=== PATIENT | male | born 1950 | race Hispanic/Latino ===

== ENCOUNTER 2019-05-09 10:15 | Emergency (ER) | payer OTHER ==
[2019-05-09] MEDS ORDERED: NA CHLORIDE 0.9% 1,000 ML ONE (10:26)
[2019-05-09 10:36] LABS: Absolute Lymphocytes (CBC) 1.7 K/uL (0.7-4.9); Basophils % 0.5 % (0-1.3); Hematocrit 36.6 % (39.6-49.0); Lymphocytes % 17.6 % (15.3-44.8); MPV 9.9 fL (7.6-11.3); RBC Red Blood Cell Count 3.74 M/uL (4.33-5.43)
--- NOTE | 2019-05-09 10:43 | RAD REPORT ---
EXAM DESCRIPTION: RAD - Chest Single View - 05/09/2019 10:33 am CLINICAL HISTORY: CHEST PAIN Chest pain. COMPARISON: CHEST PA AND LAT 2 VIEW dated 12/20/2007 FINDINGS: Portable technique limits examination quality. The lungs are grossly clear. The heart is normal in size. No displaced fractures. IMPRESSION: No acute intrathoracic process suspected.
--- NOTE | 2019-05-09 10:43 | EKG ---
Test Date: 2019-05-09 Test Time: 10:29:04 Gaming Cashier: JOHANA MEASUREMENT RESULTS: Intervals: Rate: 68 KS: 154 QRSD: 86 QT: 416 QTc: 442 [place]: P: 38 KS: 154 QRS: -23 T: 53 INTERPRETIVE STATEMENTS: Sinus rhythm with premature atrial complexes Nonspecific ST abnormality Abnormal ECG Compared to ECG 12/20/2007 08:34:07 Atrial premature complex(es) now present ST (T wave) deviation now present Sinus bradycardia no longer present Left anterior fascicular block no longer present Myocardial infarct finding no longer present Electronically Signed On 05-09-19 10:42:38 CDT by Jameson Cross
--- NOTE | 2019-05-09 10:43 | EKG ---
Test Date: 2019-05-09 Test Time: 10:29:47 Ornamental Plaster Sticker: JOHANA MEASUREMENT RESULTS: Intervals: Rate: 74 IN: 154 QRSD: 84 QT: 434 QTc: 481 [place]: P: 91 IN: 154 QRS: -22 T: 37 INTERPRETIVE STATEMENTS: Sinus rhythm and premature ventricular complexes or fusion complexes Nonspecific ST abnormality Prolonged QT Abnormal ECG Compared to ECG 05/09/2019 10:29:04 Fusion complex(es) now present Ventricular premature complex(es) now present Prolonged QT interval now present Atrial premature complex(es) no longer present ST (T wave) deviation still present Electronically Signed On 05-09-19 10:42:33 CDT by Jameson Cross
[2019-05-09 10:55] LABS: ALT/SGPT 112 U/L (12-78); AST/SGOT 184 U/L (15-37); Albumin 2.7 g/dL (3.4-5.0); Alkaline Phosphatase 268 U/L (45-117); BUN Blood Urea Nitrogen 16 mg/dL (7-18); Bicarbonate 24 mmol/L (21-32); Bilirubin Direct 1.3 mg/dL (0-0.2); Bilirubin Total 1.7 mg/dL (0.2-1.0); Glucose Level 147 mg/dL (74-106); Magnesium 1.8 mg/dL (1.8-2.4); NT PRO-BNP 210 pg/mL (<125); Potassium 3.7 mmol/L (3.5-5.1); Protein, Total 6.5 g/dL (6.4-8.2); Sodium Level 140 mmol/L (136-145); Troponin (Emerg Dept Use Only) < 0.02 ng/mL (0.0-0.045)
--- NOTE | 2019-05-09 11:36 | RAD REPORT ---
EXAM DESCRIPTION: CT - Angio Aorta For Dissection - 05/09/2019 11:17 am CLINICAL HISTORY: Chest pain radiating to the back. left sided chest pain, abdominal pain COMPARISON: No comparisons TECHNIQUE: CT angiography of the aorta was performed with MIPs. All CT scans are performed using dose optimization technique as appropriate and may include automated exposure control or mA/KV adjustment according to patient size. FINDINGS: A left aortic arch is present with normal branching pattern of the great vessels.No acute aortic finding is seen such as aneurysm, penetrating ulcer or dissection. The celiac axis, SMA, ALISHA and renal arteries are patent. The pulmonary arterial tree is suboptimally visualized phase contrast. The lungs are mildly emphysematous clear. Significant cirrhosis pattern is present throughout the liver parenchyma. Several small enhancing les ions are present in the right lobe liver. A large enhancing mass is present in the left lobe measurin g 5.6 x 4.2 cm. The gallbladder is surgically absent.Portal venous hypertension suspected.The spleen, pancreas, adrenal glands and kidneys are within normal limits for arterial phase imaging.Small benig n 15 mm left renal cyst. Mild ascites.No bowel obstruction or free air.No pathologic enlarged lymphadenopathy identified. No fracture or worrisome bone lesion seen. IMPRESSION: No acute aortic finding is demonstrated. Advanced liver cirrhosis with solid enhancing 5.6 x 4.2 cm mass in the left lobe liver, likely repres enting hepatocellular carcinoma. Correlation with alpha fetoprotein level would be suggested. Mild ascites.
[2019-05-09] MEDS ORDERED: MORPHINE 2 MG/ML SYR ONE (12:04)
--- NOTE | 2019-05-09 12:35 | ER ---
Nurse's Notes [facility] Name: Tapan Camacho Jr Age: 69 yrs Sex: Male : 1950 Arrival Date: 05/09/2019 Time: 10:16 Bed 3 Private MD: Diagnosis: Chest pain, unspecified;Unspecified cirrhosis of liver;Unspecified abdominal pain Presentation: 05/09 10:08 Presenting complaint: EMS states: pt was at physical therapy for his back and started sv c/o chest pain that started on the left neck and radiated down the midsternum and across the diaphragm area, described as a pulling sensation. Nitro x1 SL given and last BP is 80/54. EKG-PACs. Transition of care: patient was not received from another setting of care. Onset of symptoms was May 09, 2019. Risk Assessment: Do you want to hurt yourself or someone else? Patient reports no desire to harm self or others. Initial Sepsis Screen: Does the patient meet any 2 criteria? No. Patient's initial sepsis screen is negative. Does the patient have a suspected source of infection? No. Patient's initial sepsis screen is negative. Care prior to arrival: Medication(s) given: Nitroglycerin, 0.4 mg SL x 1, IV initiated. 20 GA, in the right antecubital area. 10:08 Method Of Arrival: EMS: [facility] sv 10:08 Acuity: EMILY 2 sv Triage Assessment: 10:08 General: Appears in no apparent distress. uncomfortable, unkempt, Behavior is sv cooperative, anxious. Pain: Complains of pain in left lateral aspect of neck and left anterior aspect of neck Pain radiates to diaphragm, xyphoid area and mid-sternal area Pain currently is 4 out of 10 on a pain scale. Quality of pain is described as pulling Pain began gradually, Is intermittent, Noted to be grimacing. Neuro: Level of Consciousness is awake, alert, obeys commands, Oriented to person, place, time, situation, Moves all extremities. Cardiovascular: Patient's skin is warm and dry. Rhythm is sinus tachycardia. Respiratory: Airway is patent Respiratory effort is even, unlabored, Respiratory pattern is symmetrical, tachypnea. GI: Abdomen is round. Derm: Skin is icteric, jaundiced. Historical: - Allergies: 10:20 No Known Allergies; sv - Home Meds: 10:20 Lisinopril Oral [Active]; sv - PMHx: 10:20 Hypertension; Kidney stones; sv - PSHx: 10:20 Appendectomy; sv - Immunization history:: Adult Immunizations up to date. - Social history:: Smoking status: Patient uses tobacco products, smokes one-half pack cigarettes per day, Patient uses alcohol, occasionally. - Ebola Screening: : No symptoms or risks identified at this time. Screenin:00 Abuse screen: Denies threats or abuse. Denies injuries from another. Nutritional sv screening: No deficits noted. Tuberculosis screening: No symptoms or risk factors identified. Fall Risk None identified. Assessment: 10:33 Reassessment: Patient appears in no apparent distress at this time. No changes from sv previously documented assessment. Patient and/or family updated on plan of care and expected duration. Pain level reassessed. Patient is alert, oriented x 3, equal unlabored respirations, skin warm/dry/pink. 12:15 Reassessment: Patient and/or family updated on plan of care and expected duration. Pain sv level reassessed. Patient is alert, oriented x 3, equal unlabored respirations, skin warm/dry/pink. Pain: Complains of pain in chest Pain currently is 8 out of 10 on a pain scale. Is continuous, Noted to be crying, grimacing. Neuro: Level of Consciousness is awake, alert, obeys commands, Oriented to person, place, time, situation. Respiratory: Respiratory effort is even, unlabored, Respiratory pattern is regular, symmetrical. 14:51 Reassessment: Patient appears in no apparent distress at this time. sg 15:50 Reassessment: Patient appears in no apparent distress at this time. Patient and/or sv family updated on plan of care and expected duration. Pain level reassessed. Patient is alert, oriented x 3, equal unlabored respirations, skin warm/dry/pink. Patient states feeling better. Patient states symptoms have improved. 16:37 Reassessment: Patient appears in no apparent distress at this time. Patient and/or sv family updated on plan of care and expected duration. Pain level reassessed. Patient is alert, oriented x 3, equal unlabored respirations, skin warm/dry/pink. Pt given lemon glycerine swabs Patient states feeling better. Patient states symptoms have improved. Vital Signs: 10:15 BP 93 / 71; Pulse 128; Resp 22; Temp 97.1; Pulse Ox 100% ; Weight 83.01 kg; Height 5 sv ft. 9 in. (175.26 cm); Pain 4/10; 10:22 Pulse 60 MON; sv 11:27 BP 122 / 71; Pulse 71; Resp 21; Pulse Ox 100% ; sv 12:30 BP 124 / 91; Pulse 60; Resp 17; Pulse Ox 100% on R/A; sg 13:30 BP 124 / 73; Pulse 52; Resp 17; Pulse Ox 100% on R/A; sg 14:30 BP 114 / 79; Pulse 55; Resp 17 S; Pulse Ox 100% on R/A; Pain 2/10; sg 10:15 Body Mass Index 27.02 (83.01 kg, 175.26 cm) sv 10:22 Sinus Rhythm sv 10:22 Pt's HR drops from the 60s and will go back up to the 130-140s. Informed Hal SCHROEDER ED Course: 10:08 Patient has correct armband on for positive identification. Placed in gown. Bed in low sv position. Call light in reach. Side rails up X2. campus monitor on. Pulse ox on. NIBP on. 10:08 Initial lab(s) drawn, by ED staff, sent to lab. Maintain EMS IV. Dressing intact. Good sv blood return noted. Site clean \T\ dry. Gauge \T\ site: 20G R AC. 10:13 EKG done, by arcade technician. reviewed by Bello Kilgore MD. at1 10:16 Patient arrived in ED. sv 10:16 Meagan Sexton, CHACORTA is Primary Nurse. sv 10:18 Hal Ortega PA is PHCP. jmm 10:18 Bello Kilgore MD is Attending Physician. jmm 10:19 Triage completed. sv 10:22 Arm band placed on. sv 10:29 EKG done, by arcade technician. reviewed by Bello Kilgore MD times two. at1 10:30 X-ray completed. Portable x-ray completed in exam room. Patient tolerated procedure jb2 well. 10:32 XRAY Chest (1 view) In Process Unspecified. EDMS 11:00 Patient maintains SpO2 saturation greater than 95% on room air. sv 11:18 CT Aorta for Dissection In Process Unspecified. EDMS 12:10 IV discontinued, intact, bleeding controlled, Pressure dressing applied, IV sv discontinued to R AC d/t infiltration. 12:13 Inserted saline lock: 20 gauge in left antecubital area, using aseptic technique. Blood sv collected. Flushed left antecubital with 5 ml normal saline. 12:24 attempted transfer to [facility] in [place]. bd Administered Medications: 10:33 Drug: NS 0.9% 1000 ml Route: IV; Rate: 1 bolus; Site: right antecubital; sv 11:30 Follow up: Response: No adverse reaction; IV Status: Completed infusion; IV Intake: sv 1000ml 12:15 Drug: morphine 4 mg {Note: RASS3.} Route: IVP; Site: left antecubital; sv 13:00 Follow up: Response: No adverse reaction; Marked relief of symptoms; Pain is decreased; sv RASS: Moderate sedation (-3) Intake: 11:30 IV: 1000ml; Total: 1000ml. sv Outcome: 12:35 ER care complete, transfer ordered by . shana 15:51 Transferred by ground EMS to [facility] Transfer form completed. sv X-rays sent w/ patient. Note: Report given to Rita WHATLEY 15:51 Condition: stable 15:51 Instructed on the need for transfer. 17:36 Patient left the ED. sv Signatures: Dispatcher [employer] EDMS Oliva Cota Stephanie, RN RN sv Gay, Steven, RN RN sg Mickail, Joel, PA PA jmm Buechter, Jesse jb2 Gonzales, Amanda, offset platemaker EKG Tat1
--- NOTE | 2019-05-09 12:36 | EDPHYS ---
Physician Documentation [facility] Name: Tapan Camacho Jr Age: 69 yrs Sex: Male : 1950 Arrival Date: 05/09/2019 Time: 10:16 Bed 3 Private MD: ED Physician Bello Kilgore HPI: 05/09 10:31 This 69 yrs old Male presents to ER via EMS with complaints of Chest Pain. [facility] 10:31 The patient or guardian reports chest pain that is located primarily in the substernal [facility] area. Onset: gradually, last night. The pain radiates to left neck. Associated signs and symptoms: Pertinent positives: abdominal pain. The chest pain is described as aching, pulling. This is a 69 year old male with a history of htn, kidney stones that presents to the ED with complaints of left sided chest pain radiating into the left side of his neck and abdomen diffusely. Denies vomiting.. Historical: - Allergies: 10:20 No Known Allergies; sv - Home Meds: 10:20 Lisinopril Oral [Active]; sv - PMHx: 10:20 Hypertension; Kidney stones; sv - PSHx: 10:20 Appendectomy; sv - Immunization history:: Adult Immunizations up to date. - Social history:: Smoking status: Patient uses tobacco products, smokes one-half pack cigarettes per day, Patient uses alcohol, occasionally. - Ebola Screening: : No symptoms or risks identified at this time. ROS: 10:31 Constitutional: Negative for fever, chills, and weight loss. jmm 10:31 Cardiovascular: Positive for chest pain. 10:31 Abdomen/GI: Positive for abdominal pain. 10:31 All other systems are negative. Exam: 10:31 Constitutional: This is a well developed, well nourished patient who is awake, alert, jmm and in no acute distress. Head/Face: atraumatic. Eyes: EOMI, no conjunctival erythema appreciated ENT: Moist Mucus Membranes Neck: Trachea midline, Supple Chest/axilla: Normal chest wall appearance and motion. 10:31 Cardiovascular: Rate: normal, Rhythm: regular, Pulses: no pulse deficits are appreciated. 10:31 Respiratory: the patient does not display signs of respiratory distress, Respirations: normal, Breath sounds: are clear throughout. 10:31 Abdomen/GI: Inspection: abdomen appears normal, Bowel sounds: normal, Palpation: abdomen is soft and non-tender. 10:31 Musculoskeletal/extremity: ROM: intact in all extremities. 10:31 Skin: Appearance: Color: normal in color. 10:31 Neuro: Orientation: is normal, Mentation: is normal, Memory: is normal. 10:31 Psych: Behavior/mood is pleasant, cooperative. Vital Signs: 10:15 BP 93 / 71; Pulse 128; Resp 22; Temp 97.1; Pulse Ox 100% ; Weight 83.01 kg; Height 5 sv ft. 9 in. (175.26 cm); Pain 4/10; 10:22 Pulse 60 MON; sv 11:27 BP 122 / 71; Pulse 71; Resp 21; Pulse Ox 100% ; sv 12:30 BP 124 / 91; Pulse 60; Resp 17; Pulse Ox 100% on R/A; sg 13:30 BP 124 / 73; Pulse 52; Resp 17; Pulse Ox 100% on R/A; sg 14:30 BP 114 / 79; Pulse 55; Resp 17 S; Pulse Ox 100% on R/A; Pain 2/10; sg 10:15 Body Mass Index 27.02 (83.01 kg, 175.26 cm) sv 10:22 Sinus Rhythm sv 10:22 Pt's HR drops from the 60s and will go back up to the 130-140s. Informed aHl SCHROEDER MDM: 10:23 Patient medically screened. [facility] 12:34 The patient was given aspirin in the Emergency Department. Data reviewed: vital signs, [facility] nurses notes. 15:23 ED course: I discussed the patient with Dr. Lea whom accepted transfer. . [facility] 05/09 10:16 Order name: Basic Metabolic Panel; Complete Time: 10:57 05/09 10:16 Order name: CBC with Diff; Complete Time: 10:44 05/09 10:16 Order name: LFT's; Complete Time: 10:57 05/09 10:16 Order name: Magnesium; Complete Time: 10:57 05/09 10:16 Order name: NT PRO-BNP; Complete Time: 10:57 05/09 10:16 Order name: PT-INR; Complete Time: 10:44 05/09 10:16 Order name: Troponin (emerg Dept Use Only); Complete Time: 10:57 05/09 10:16 Order name: XRAY Chest (1 view); Complete Time: 10:44 05/09 10:23 Order name: CT Aorta for Dissection; Complete Time: 11:44 [facility] 05/09 11:05 Order name: Lipase; Complete Time: 11:20 [facility] 05/09 11:58 Order name: AMMONIA; Complete Time: 12:41 [facility] 05/09 10:16 Order name: EKG; Complete Time: 10:18 sv 05/09 10:16 Order name: Cardiac monitoring; Complete Time: 10:16 sv 05/09 10:16 Order name: EKG - Nurse/Tech; Complete Time: 10:16 sv 05/09 10:16 Order name: IV Saline Lock; Complete Time: 10:16 05/09 10:16 Order name: Labs collected and sent; Complete Time: 10:17 sv 05/09 10:16 Order name: O2 Per Protocol; Complete Time: 10:17 sv 05/09 10:16 Order name: O2 Sat Monitoring; Complete Time: 10:17 05/09 10:32 Order name: EKG; Complete Time: 10:33 sv 05/09 10:32 Order name: EKG - Nurse/Tech; Complete Time: 10:32 sv 05/09 10:48 Order name: EKG Electrocardiogram; Complete Time: 12:05 EDMS Administered Medications: 10:33 Drug: NS 0.9% 1000 ml Route: IV; Rate: 1 bolus; Site: right antecubital; sv 11:30 Follow up: Response: No adverse reaction; IV Status: Completed infusion; IV Intake: sv 1000ml 12:15 Drug: morphine 4 mg {Note: RASS3.} Route: IVP; Site: left antecubital; sv 13:00 Follow up: Response: No adverse reaction; Marked relief of symptoms; Pain is decreased; sv RASS: Moderate sedation (-3) Disposition: 05/09/19 12:35 Transfer [facility] to [facility]. Diagnosis are Chest pain, unspecified, Unspecified cirrhosis of liver, Unspecified abdominal pain. - Reason for transfer: Higher level of care. - Accepting physician is [place]. - Condition is Stable. - Problem is new. - Symptoms have improved. Signatures: [facility] Meagan Sexton RN Hal Mendez PA PA jmm Corrections: (The following items were deleted from the chart) 17:36 12:35 05/09/2019 12:35 Transfer ordered to [place]. Diagnosis is Chest pain, unspecified; Unspecified cirrhosis of liver; Unspecified abdominal pain. Reason for transfer: Higher level of care. [facility]. Condition is Stable. Problem is new. Symptoms have improved. shana
--- NOTE | 2019-05-09 16:07 | EKG ---
Test Date: 2019-05-09 Test Time: 10:13:15 Grant Officer: JOHANA MEASUREMENT RESULTS: Intervals: Rate: 132 IA: 86 QRSD: 80 QT: 346 QTc: 512 [place]: P: IA: 86 QRS: -23 T: 54 INTERPRETIVE STATEMENTS: Sinus tachycardia with short IA Nonspecific ST abnormality Abnormal ECG Compared to ECG 12/20/2007 08:34:07 Short IA interval now present ST (T wave) deviation now present Sinus bradycardia no longer present Left anterior fascicular block no longer present Myocardial infarct finding no longer present Electronically Signed On 05-09-19 16:06:18 CDT by Jameson Cross
== END 2019-05-09 17:36 ==
LOC: ER 10:15
DX: K74.60 Unspecified cirrhosis of liver (principal); R10.9 Unspecified abdominal pain; I10 Essential (primary) hypertension; F17.210 Nicotine dependence, cigarettes, uncomplicated; Z87.442 Personal history of urinary calculi
CPT/HCPCS: 93005 ×3; 85025; 80048; 36415; 82140; 83735; 85610; 80076; 84484; 83690; 83880; 71275; 74175; 71045; Q9967; J2270; J7030